=== PATIENT | female | born 1975 | race African-American/Black ===

== ENCOUNTER 2018-04-11 12:53 | Emergency (ER) | payer OTHER ==
[2018-04-11 13:09] VITALS: BP 125/82; PULSE 94; TEMP 98.6; BMI 21.1
[2018-04-11] MEDS ORDERED: ONDANSETRON 4 MG/2 ML VIAL IVPUSH ONE (14:20)
[2018-04-11] MEDS ORDERED: SODIUM CHLORIDE 1,000 ML IV STA (14:21)
--- NOTE | 2018-04-11 14:23 | PDOC ---
History of Present Illness - General Chief Complaint: Nausea/Vomiting Stated Complaint: VOMITED TODAY FEELS DISORIENTED Time Seen by Provider: 04/11/18 13:15 History Source: Patient Past History - Past Medical History Allergies/Adverse Reactions: Allergies Allergy/AdvReac Type Severity Reaction Status Date / Time No Known Allergies Allergy Unverified 04/11/18 12:55 Home Medications: Ambulatory Orders Ondansetron HCl [Zofran] 4 mg PO TID #14 tablet 04/11/18 Asthma: Yes COPD: No Other medical history: PNEUMONIA - Suicide/Smoking/Psychosocial Hx Smoking History: Current every day smoker Have you smoked in the past 12 months: Yes Number of Cigarettes Smoked Daily: 10 Information on smoking cessation initiated: Yes Hx Alcohol Use: Yes (OCCASSIONAL) Drug/Substance Use Hx: No *Physical Exam - Vital Signs Last Vital Signs Temp Pulse Resp BP Pulse Ox 98.6 F 94 H 16 125/82 100 04/11/18 12:55 04/11/18 12:55 04/11/18 12:55 04/11/18 12:55 04/11/18 12:55 Moderate Sedation - Procedure Monitoring Vital Signs: Procedure Monitoring Vital Signs Temperature 98.6 F 04/11/18 12:55 Pulse Rate 94 H 04/11/18 12:55 Respiratory Rate 16 04/11/18 12:55 Blood Pressure 125/82 04/11/18 12:55 O2 Sat by Pulse Oximetry (%) 100 04/11/18 12:55 ED Treatment Course - LABORATORY CBC & Chemistry Diagram: 04/11/18 14:41 04/11/18 14:41 *DC/Admit/Observation/Transfer Diagnosis at time of Disposition: Nausea - Discharge Dispostion Disposition: HOME Condition at time of disposition: Stable Decision to Admit order: No - Referrals - Patient Instructions Printed Discharge Instructions: DI for Nausea -- Adult Additional Instructions: Follow up with your physician in [place], coordinating your care, MRI, etc - Post Discharge Activity
[2018-04-11] MEDS ORDERED: ONDANSETRON 4 MG/2 ML VIAL ONE (14:44)
[2018-04-11 14:53] LABS: BASO % 0.9 % (0-2.0); EOS % 1.5 % (0-4.5); HEMOGLOBIN 12.8 GM/dl (10.7-15.3); LYMPH % 36.8 % (8-40); MCH 29.5 pg (25.7-33.7); MEAN CELL VOLUME 89.5 fl (80-96); MEAN PLT VOLUME 7.8 fl (7.5-11.1); MONO % 10.6 % (3.8-10.2); NEUT % 50.2 % (42.8-82.8); PLATELET COUNT 244 K/MM3 (134-434); RBC 4.35 M/mm3 (3.60-5.2); RDW 13.4 % (11.6-15.6); WHITE BLOOD COUNT 4.3 K/mm3 (4.0-10.8)
[2018-04-11 14:54] LABS: PH,URINE 5.5 (4.5-8); URINE APPEARANCE Clear; URINE BILIRUBIN Negative (NEGATIVE); URINE COLOR Yellow; URINE GLUCOSE (UA) Negative (NEGATIVE); URINE KETONE Negative (NEGATIVE); URINE LEUK ESTERASE Negative (NEGATIVE); URINE NITRITE Negative (NEGATIVE); URINE PROTEIN Negative (NEGATIVE); URINE UROBILINOGEN 0.2 (0.2-1.0)
[2018-04-11 15:08] LABS: ALBUMIN 4.3 g/dl (3.5-5.0); ALK PHOS 47 U/L (32-92); ANION GAP 6 MMOL/L (8-16); BILIRUBIN,TOTAL 0.3 mg/dl (0.2-1.0); BLOOD UREA NITROGEN 13 mg/dl (7-18); CALCIUM 9.6 mg/dl (8.4-10.2); CHLORIDE 102 mmol/L (98-107); CO2 26 mmol/L (22-28); CREATININE 0.6 mg/dl (0.6-1.3); GLUCOSE,RANDOM 80 mg/dl (74-106); MAGNESIUM 1.9 mg/dL (1.8-2.4); POTASSIUM 3.9 mmol/L (3.5-5.1); SGOT/AST 18 U/L (10-42); SGPT/ALT 13 U/L (10-40); SODIUM 134 mmol/L (136-145); TOT PROT 7.8 g/dl (6.4-8.3)
[2018-04-11 16:15] LABS: EPI CELLS 3+ /HPF; URINE BACTERIA 2+ /hpf (NEGATIVE); URINE WBC 0-2 (0-5)
== END 2018-04-11 17:20 | disposition home or self-care (01) ==
LOC: FER 12:53
PROC: 3E033GC Introduction of Other Therapeutic Substance into Peripheral Vein, Percutaneous Approach (ICD-10-PCS; principal; 2018-04-11)
PROC: 3E0337Z Introduction of Electrolytic and Water Balance Substance into Peripheral Vein, Percutaneous Approach (ICD-10-PCS; 2018-04-11)
DX: R11.0 Nausea (principal); F17.210 Nicotine dependence, cigarettes, uncomplicated
CPT/HCPCS: 36415; 70450-TC; 80053; 80307; 81003; 81015; 83735; 84703; 85025; 99283-25; J7030